=== PATIENT | female | born 1970 | race Caucasian/White ===

== ENCOUNTER 2016-05-11 10:37 | Inpatient (IN) | payer MEDICAID ==
[~2016-05-11] VITALS: Ht 157.5 cm; Wt 104.3 kg
[2016-05-11] MEDS ORDERED: METF10002 PO (10:56)
[2016-05-11] MEDS ORDERED: BENA20TA3 PO (10:56)
[2016-05-11] MEDS ORDERED: GLIP5TAB12 PO (10:56)
[2016-05-11] MEDS ORDERED: ATOR10TA69 PO (10:56)
[2016-05-11] MEDS ORDERED: HYDR-3280 PO (10:56)
[2016-05-11] MEDS ORDERED: GABA-533 PO (10:56)
[2016-05-11] MEDS ORDERED: LANS30CA55 PO (10:56)
[2016-05-11] MEDS ORDERED: TRAZ-132 PO (10:56)
[2016-05-11] MEDS ORDERED: ASPI-1035 PO (10:56)
[2016-05-11] MEDS ORDERED: METOCLOPRAM (10:56)
[2016-05-11] MEDS ORDERED: SUCR1ORA PO (10:56)
[2016-05-11] MEDS ORDERED: TOPI-35 PO (10:56)
[2016-05-11] MEDS ORDERED: DULO60CA44 PO (10:56)
[2016-05-11] MEDS ORDERED: STOOL SOFTENER (10:56)
[2016-05-11 12:01] LABS: BASOPHILS % 0.9 % (0.0-2.0); HEMATOCRIT. 33.2 % (36.0-48.0); HEMOGLOBIN. 11.1 g/dL (12.0-16.0); LYMPHOCYTES % 35.1 % (20.0-50.0); MEAN CORPUSCULAR HGB CONC 33.6 g/dL (31.0-37.0); MEAN CORPUSCULAR VOLUME 98.3 fL (81.0-99.0); MEAN PLATELET VOLUME 7.3 fl (7.4-10.4); MONOCYTES % 5.3 % (2.0-8.0); NEUTROPHILS % 53.7 % (40.0-76.0); PLATELET 435 x1000/uL (130-400); RED BLOOD CELL COUNT 3.37 mill/uL (4.2-5.4); RED CELL DISTRIBUTION WIDTH 12.7 % (11.6-14.6); WHITE BLOOD COUNT 6.7 x1000/uL (4.5-11.0)
[2016-05-11 12:07] LABS: PROTHROMBIN TIME 10.8 sec
[2016-05-11 12:13] LABS: ANION GAP 14; CARBON DIOXIDE 26 mEq/L (21-32); CHLORIDE 105 mEq/L (98-107); UREA NITROGEN BLOOD 21 mg/dL (7-21)
[2016-05-11 12:14] LABS: ALANINE AMINOTRANSFERASE 29 IU/L (13-61); ALBUMIN 2.9 g/dL (3.4-5.0); CALCIUM 8.6 mg/dL (8.5-10.1); INDEX HEMOLYSI 1 (1-3); INDEX ICTERIC 1 (1-4); INDEX LIPEMIC 2 (1-3); eGFR > 60 mL/min (>60)
[2016-05-11 12:14] LABS: CLARITY URINE HAZY (CLEAR); COLOR URINE YELLOW (YELLOW); GLUCOSE URINE TRACE (NEGATIVE); KETONES URINE NEGATIVE (NEGATIVE); LEUKOCYTE ESTERASE URINE TRACE (NEGATIVE); NITRITE URINE NEGATIVE (NEGATIVE); OCCULT BLOOD URINE 1+ (NEGATIVE); PROTEIN URINE 3+ (NEGATIVE); SPECIFIC GRAVITY URINE 1.025 (1.005-1.030); UROBILINOGEN URINE 0.2 E.U./dL (0.2-1.0)
[2016-05-11] MEDS ORDERED: HYDROCODONE/ACETAMINOPHEN 10/325MG TABLET PO PRN (12:30)
[2016-05-11 12:36] LABS: BACTERIA URINE TRACE; SQUAMOUS EPITHELIAL CELL URINE 2+ /lpf (RARE/1+); WBC URINE 0-2 /hpf (0-2)
[2016-05-11 12:37] LABS: YEAST URINE FEW
[2016-05-11 12:38] LABS: RBC URINE NONE SEEN /hpf (0-2)
[2016-05-11] MEDS ORDERED: VANCOMYCIN 1 G PREMIX 200 ML IV SCH (13:15)
[2016-05-11] MEDS ORDERED: ACETAMINOPHEN 325MG TABLET PO PRN (13:15)
[2016-05-11] MEDS ORDERED: IPRATROPIUM/ALBUTEROL 0.5-3(2.5)MG/3ML NEB INH PRN (13:15)
[2016-05-11] MEDS ORDERED: DEXTROSE 50% WATER 50ML SYRINGE IV PRN (13:15)
[2016-05-11] MEDS ORDERED: ONDANSETRON HCL 4MG/2ML VIAL IV PRN (13:15)
[2016-05-11] MEDS ORDERED: TETANUS, DIPHTHERIA, PERTUSSIS VAC/PF 0.5ML (>7YR OLD) IM ONE (13:15)
[2016-05-11] MEDS ORDERED: DIPHENHYDRAMINE 50MG/ML VIAL IV PRN (13:15)
[2016-05-11] MEDS ORDERED: CLONIDINE 0.1MG TABLET PO PRN (13:15)
[2016-05-11] MEDS ORDERED: PIPERACILLIN/TAZ 3.375G PREMIX 50 ML IV SCH (14:30)
[2016-05-11 16:00] VITALS: BP 97/67
[2016-05-11 16:34] VITALS: BP 97/67
[2016-05-11] MEDS ORDERED: GLIPIZIDE 5MG TABLET PO SCH (17:00)
[2016-05-11] MEDS ORDERED: SUCRALFATE 1 G/10 ML UDC PO SCH (17:00)
[2016-05-11] MEDS ORDERED: GABAPENTIN 400MG CAPSULE PO SCH (17:00)
[2016-05-11] MEDS ORDERED: METOCLOPRAMIDE HCL 10MG TABLET PO ONE (17:00)
[2016-05-11] MEDS: BLOOD SUGAR DIAGNOSTIC STRIP TEST SCH ×2 (17:46→20:32)
[2016-05-11] MEDS: INSULIN LISPRO 100 UNITS/ML SUBCUT SCH ×2 (17:50→22:35)
[2016-05-11] MEDS ORDERED: VANCOMYCIN 2,000 MG in DEXT 5% WATER 500 ML IV NR (18:00)
[2016-05-11] MEDS: GABAPENTIN 400MG CAPSULE PO SCH (18:33)
[2016-05-11] MEDS: HYDROCODONE/ACETAMINOPHEN 5/325MG TABLET PO PRN (18:35)
[2016-05-11] MEDS: METFORMIN HCL 500MG TABLET PO SCH (18:35)
[2016-05-11] MEDS: GLIPIZIDE 5MG TABLET PO SCH (18:35)
[2016-05-11] MEDS: PIPERACILLIN/TAZ 3.375G PREMIX 50 ML IV SCH (18:44)
[2016-05-11 20:11] VITALS: BP 96/63
[2016-05-11] MEDS: ATORVASTATIN CALCIUM 10MG TABLET PO SCH (22:29)
[2016-05-11] MEDS: TRAZODONE HCL 100MG TABLET PO SCH (22:30)
[2016-05-11] MEDS: SUCRALFATE 1 G/10 ML UDC PO SCH (22:30)
[2016-05-12] VITALS: BP 97/66
[2016-05-12] MEDS: PIPERACILLIN/TAZ 3.375G PREMIX 50 ML IV SCH ×4 (01:21→17:31)
[2016-05-12] MEDS: HYDROCODONE/ACETAMINOPHEN 5/325MG TABLET PO PRN ×5 (03:48→21:35)
[2016-05-12] MEDS ORDERED: VANCOMYCIN 1 G PREMIX 200 ML IV SCH (06:00)
[2016-05-12 06:32] LABS: BASOPHILS % 0.6 % (0.0-2.0); EOSINOPHILS % 4.7 % (0.0-5.0); HEMATOCRIT. 31.4 % (36.0-48.0); HEMOGLOBIN. 10.5 g/dL (12.0-16.0); LYMPHOCYTES % 30.4 % (20.0-50.0); MEAN CORPUSCULAR HEMOGLOBIN 32.5 pg (28.0-32.0); MEAN CORPUSCULAR HGB CONC 33.4 g/dL (31.0-37.0); MEAN CORPUSCULAR VOLUME 97.2 fL (81.0-99.0); MEAN PLATELET VOLUME 7.3 fl (7.4-10.4); MONOCYTES % 7.9 % (2.0-8.0); NEUTROPHILS % 56.4 % (40.0-76.0); PLATELET 369 x1000/uL (130-400); RED BLOOD CELL COUNT 3.23 mill/uL (4.2-5.4); RED CELL DISTRIBUTION WIDTH 12.9 % (11.6-14.6); WHITE BLOOD COUNT 5.8 x1000/uL (4.5-11.0)
[2016-05-12] MEDS: BLOOD SUGAR DIAGNOSTIC STRIP TEST SCH ×4 (06:45→21:00)
[2016-05-12] MEDS: PANTOPRAZOLE 40MG DR TABLET PO SCH (06:55)
[2016-05-12 07:09] LABS: ALANINE AMINOTRANSFERASE 26 IU/L (13-61); ALBUMIN 2.5 g/dL (3.4-5.0); ANION GAP 12; CALCIUM 8.5 mg/dL (8.5-10.1); CARBON DIOXIDE 25 mEq/L (21-32); CHLORIDE 107 mEq/L (98-107); HDL CHOLESTEROL 38 mg/dL (40-59); INDEX HEMOLYSI 1 (1-3); INDEX ICTERIC 1 (1-4); INDEX LIPEMIC 1 (1-3); LDL CHOLESTEROL 57 mg/dL (5-100); TRIGLYCERIDE 242 mg/dL (0-150); UREA NITROGEN BLOOD 21 mg/dL (7-21); eGFR > 60 mL/min (>60)
[2016-05-12] MEDS ORDERED: DOCU-138 PO ×2 (07:36→08:22)
[2016-05-12 08:00] VITALS: BP 128/80
[2016-05-12] MEDS: BENAZEPRIL 20MG TABLET PO SCH (09:00)
[2016-05-12] MEDS ORDERED: LANSOPRAZOLE 30MG DR CAPSULE PO SCH (09:00)
[2016-05-12] MEDS: GABAPENTIN 400MG CAPSULE PO SCH ×3 (09:06→17:03)
[2016-05-12] MEDS: TOPIRAMATE 100MG TABLET PO SCH (09:07)
[2016-05-12] MEDS: GLIPIZIDE 5MG TABLET PO SCH ×2 (09:08→17:04)
[2016-05-12] MEDS: METFORMIN HCL 500MG TABLET PO SCH ×2 (09:09→17:02)
[2016-05-12] MEDS: SUCRALFATE 1 G/10 ML UDC PO SCH ×4 (09:11→21:27)
[2016-05-12] MEDS: ASPIRIN 81MG EC TABLET PO SCH (09:11)
[2016-05-12] MEDS: DULOXETINE HCL 60MG DR CAPSULE PO SCH (09:13)
[2016-05-12] MEDS: INSULIN LISPRO 100 UNITS/ML SUBCUT SCH ×4 (09:21→21:00)
[2016-05-12] MEDS: DOCUSATE SODIUM 100MG CAPSULE PO SCH ×2 (10:06→17:03)
[2016-05-12 12:00] VITALS: BP 128/87
[2016-05-12] MEDS: INSULIN DETEMIR UD 100 UNITS/ML SYR SUBCUT SCH (12:04)
[2016-05-12 16:00] VITALS: BP 115/74
[2016-05-12] MEDS: METOCLOPRAMIDE HCL 10MG TABLET PO SCH (17:04)
[2016-05-12 20:00] VITALS: BP 118/83
[2016-05-12] MEDS: TRAZODONE HCL 100MG TABLET PO SCH (21:28)
[2016-05-12] MEDS: ATORVASTATIN CALCIUM 10MG TABLET PO SCH (21:28)
[2016-05-12] MEDS: VANCOMYCIN 750 MG PREMIX 150 ML IV SCH (21:28)
[2016-05-12] MEDS: HYDROCODONE/ACETAMINOPHEN 10/325MG TABLET PO PRN (21:35)
[2016-05-13] VITALS: BP 128/79
[2016-05-13] MEDS: METOCLOPRAMIDE HCL 10MG TABLET PO SCH ×4 (01:08→18:15)
[2016-05-13] MEDS: PIPERACILLIN/TAZ 3.375G PREMIX 50 ML IV SCH ×4 (02:17→20:54)
[2016-05-13] MEDS: HYDROCODONE/ACETAMINOPHEN 10/325MG TABLET PO PRN ×4 (03:44→21:08)
[2016-05-13 04:00] VITALS: BP 137/72
[2016-05-13] MEDS: PANTOPRAZOLE 40MG DR TABLET PO SCH (06:46)
[2016-05-13] MEDS: BLOOD SUGAR DIAGNOSTIC STRIP TEST SCH ×4 (07:20→21:00)
[2016-05-13 08:00] VITALS: BP 107/74
[2016-05-13] MEDS: SUCRALFATE 1 G/10 ML UDC PO SCH ×4 (08:28→20:54)
[2016-05-13] MEDS: TOPIRAMATE 100MG TABLET PO SCH (08:30)
[2016-05-13] MEDS: DOCUSATE SODIUM 100MG CAPSULE PO SCH ×2 (08:30→18:16)
[2016-05-13] MEDS: ASPIRIN 81MG EC TABLET PO SCH (08:30)
[2016-05-13] MEDS: DULOXETINE HCL 60MG DR CAPSULE PO SCH (08:31)
[2016-05-13] MEDS: METFORMIN HCL 500MG TABLET PO SCH ×2 (08:31→18:14)
[2016-05-13] MEDS: GLIPIZIDE 5MG TABLET PO SCH ×2 (08:32→18:15)
[2016-05-13] MEDS: BENAZEPRIL 20MG TABLET PO SCH (08:32)
[2016-05-13] MEDS: GABAPENTIN 400MG CAPSULE PO SCH ×3 (08:33→18:14)
[2016-05-13] MEDS: INSULIN LISPRO 100 UNITS/ML SUBCUT SCH ×4 (08:35→21:00)
[2016-05-13] MEDS: SUMATRIPTAN SUCCINATE 25MG TABLET PO PRN (08:59)
[2016-05-13] MEDS: VANCOMYCIN 750 MG PREMIX 150 ML IV SCH ×2 (09:01→20:49)
[2016-05-13] MEDS: INSULIN DETEMIR UD 100 UNITS/ML SYR SUBCUT SCH (10:35)
[2016-05-13 12:00] VITALS: BP 136/78
[2016-05-13 16:00] VITALS: BP 117/80
[2016-05-13 20:00] VITALS: BP 108/68
[2016-05-13] MEDS: ATORVASTATIN CALCIUM 10MG TABLET PO SCH (21:08)
[2016-05-13] MEDS: TRAZODONE HCL 100MG TABLET PO SCH (21:08)
[2016-05-14] VITALS: BP 104/64
[2016-05-14] MEDS: METOCLOPRAMIDE HCL 10MG TABLET PO SCH ×4 (00:56→17:32)
[2016-05-14] MEDS: PIPERACILLIN/TAZ 3.375G PREMIX 50 ML IV SCH ×4 (02:22→20:35)
[2016-05-14 04:00] VITALS: BP 93/52
[2016-05-14] MEDS: BLOOD SUGAR DIAGNOSTIC STRIP TEST SCH ×4 (06:21→20:41)
[2016-05-14 07:46] LABS: CALCIUM 8.2 mg/dL (8.5-10.1)
[2016-05-14] MEDS: METFORMIN HCL 500MG TABLET PO SCH ×2 (07:47→09:56)
[2016-05-14] MEDS: INSULIN LISPRO 100 UNITS/ML SUBCUT SCH ×4 (07:47→20:41)
[2016-05-14] MEDS ORDERED: FENTANYL CITRATE/PF 50MCG/ML 2ML VIAL ONE (07:51)
[2016-05-14] MEDS ORDERED: IODIXANOL 320MG/ML 100 ML BOTTLE IV ONE (07:51)
[2016-05-14] MEDS ORDERED: MIDAZOLAM HCL 2 MG/2 ML VIAL ONE (07:51)
[2016-05-14] MEDS ORDERED: LIDOCAINE HCL 1% 20ML VIAL (Pyxis) INJ ONE (07:52)
[2016-05-14 08:00] VITALS: BP 135/90
[2016-05-14] MEDS ORDERED: HYDROMORPHONE HCL/PF 2MG/ML (OR) ONE (08:20)
[2016-05-14 09:54] LABS: BASOPHILS % 0.5 % (0.0-2.0); EOSINOPHILS % 4.1 % (0.0-5.0); HEMATOCRIT. 32.7 % (36.0-48.0); HEMOGLOBIN. 10.8 g/dL (12.0-16.0); LYMPHOCYTES % 33.6 % (20.0-50.0); MEAN CORPUSCULAR HEMOGLOBIN 32.9 pg (28.0-32.0); MEAN CORPUSCULAR HGB CONC 33.1 g/dL (31.0-37.0); MEAN CORPUSCULAR VOLUME 99.2 fL (81.0-99.0); MEAN PLATELET VOLUME 7.3 fl (7.4-10.4); MONOCYTES % 5.4 % (2.0-8.0); NEUTROPHILS % 56.4 % (40.0-76.0); PLATELET 394 x1000/uL (130-400); RED BLOOD CELL COUNT 3.29 mill/uL (4.2-5.4); RED CELL DISTRIBUTION WIDTH 12.8 % (11.6-14.6); WHITE BLOOD COUNT 8.2 x1000/uL (4.5-11.0)
[2016-05-14] MEDS: GABAPENTIN 400MG CAPSULE PO SCH ×3 (09:55→17:32)
[2016-05-14] MEDS: DOCUSATE SODIUM 100MG CAPSULE PO SCH ×2 (09:56→17:32)
[2016-05-14] MEDS: FAMOTIDINE 20MG TABLET PO SCH ×2 (09:56→17:32)
[2016-05-14] MEDS: ASPIRIN 81MG EC TABLET PO SCH (09:56)
[2016-05-14] MEDS: SUCRALFATE 1 G/10 ML UDC PO SCH ×4 (09:57→20:41)
[2016-05-14] MEDS: BENAZEPRIL 20MG TABLET PO SCH (09:57)
[2016-05-14] MEDS: TOPIRAMATE 100MG TABLET PO SCH (09:57)
[2016-05-14] MEDS: DULOXETINE HCL 60MG DR CAPSULE PO SCH (09:58)
[2016-05-14] MEDS: GLIPIZIDE 5MG TABLET PO SCH ×2 (09:58→17:32)
[2016-05-14] MEDS: INSULIN DETEMIR UD 100 UNITS/ML SYR SUBCUT SCH (10:11)
[2016-05-14] MEDS: HYDROCODONE/ACETAMINOPHEN 10/325MG TABLET PO PRN ×2 (10:16→17:47)
[2016-05-14] MEDS: VANCOMYCIN 750 MG PREMIX 150 ML IV SCH ×2 (10:50→21:59)
[2016-05-14 12:00] VITALS: BP 160/91
[2016-05-14] MEDS: SUMATRIPTAN SUCCINATE 25MG TABLET PO PRN (13:13)
[2016-05-14 16:00] VITALS: BP 128/69
[2016-05-14 20:00] VITALS: BP 109/74
[2016-05-14] MEDS: ATORVASTATIN CALCIUM 10MG TABLET PO SCH (20:35)
[2016-05-14] MEDS: TRAZODONE HCL 100MG TABLET PO SCH (20:35)
[2016-05-15] VITALS: BP 118/70
[2016-05-15] MEDS: METOCLOPRAMIDE HCL 10MG TABLET PO SCH ×5 (00:04→23:29)
[2016-05-15] MEDS: HYDROCODONE/ACETAMINOPHEN 10/325MG TABLET PO PRN ×3 (00:04→21:41)
[2016-05-15] MEDS: PIPERACILLIN/TAZ 3.375G PREMIX 50 ML IV SCH ×4 (02:24→20:55)
[2016-05-15 04:00] VITALS: BP 105/56
[2016-05-15 06:58] LABS: BASOPHILS % 0.6 % (0.0-2.0); EOSINOPHILS % 2.5 % (0.0-5.0); HEMATOCRIT. 29.8 % (36.0-48.0); HEMOGLOBIN. 10.2 g/dL (12.0-16.0); LYMPHOCYTES % 41.7 % (20.0-50.0); MEAN CORPUSCULAR HEMOGLOBIN 33.1 pg (28.0-32.0); MEAN CORPUSCULAR HGB CONC 34.2 g/dL (31.0-37.0); MEAN CORPUSCULAR VOLUME 96.7 fL (81.0-99.0); MEAN PLATELET VOLUME 7.2 fl (7.4-10.4); MONOCYTES % 7.2 % (2.0-8.0); PLATELET 389 x1000/uL (130-400); RED BLOOD CELL COUNT 3.09 mill/uL (4.2-5.4); RED CELL DISTRIBUTION WIDTH 12.7 % (11.6-14.6); WHITE BLOOD COUNT 8.3 x1000/uL (4.5-11.0)
[2016-05-15] MEDS: BLOOD SUGAR DIAGNOSTIC STRIP TEST SCH ×4 (07:06→21:02)
[2016-05-15 07:11] LABS: CALCIUM 8.4 mg/dL (8.5-10.1)
[2016-05-15 07:41] VITALS: BP 105/61
[2016-05-15] MEDS: INSULIN LISPRO 100 UNITS/ML SUBCUT SCH ×4 (07:50→21:00)
[2016-05-15] MEDS: BENAZEPRIL 20MG TABLET PO SCH (09:00)
[2016-05-15] MEDS: SUCRALFATE 1 G/10 ML UDC PO SCH ×4 (09:00→20:56)
[2016-05-15] MEDS: METFORMIN HCL 500MG TABLET PO SCH ×2 (09:44→18:07)
[2016-05-15] MEDS: DULOXETINE HCL 60MG DR CAPSULE PO SCH (09:45)
[2016-05-15] MEDS: DOCUSATE SODIUM 100MG CAPSULE PO SCH ×2 (09:45→18:06)
[2016-05-15] MEDS: ASPIRIN 81MG EC TABLET PO SCH (09:46)
[2016-05-15] MEDS: GLIPIZIDE 5MG TABLET PO SCH ×2 (09:46→18:06)
[2016-05-15] MEDS: FAMOTIDINE 20MG TABLET PO SCH ×2 (09:47→18:07)
[2016-05-15] MEDS: GABAPENTIN 400MG CAPSULE PO SCH ×3 (09:47→18:06)
[2016-05-15] MEDS: TOPIRAMATE 100MG TABLET PO SCH (09:48)
[2016-05-15 11:49] VITALS: BP 115/62
[2016-05-15] MEDS: INSULIN DETEMIR UD 100 UNITS/ML SYR SUBCUT SCH (12:59)
[2016-05-15] MEDS: VANCOMYCIN 750 MG PREMIX 150 ML IV SCH (15:40)
[2016-05-15] MEDS: SUMATRIPTAN SUCCINATE 25MG TABLET PO PRN (15:41)
[2016-05-15 15:50] VITALS: BP 110/66
[2016-05-15 20:00] VITALS: BP 113/65
[2016-05-15] MEDS: ATORVASTATIN CALCIUM 10MG TABLET PO SCH (20:55)
[2016-05-15] MEDS: TRAZODONE HCL 100MG TABLET PO SCH (20:55)
[2016-05-15] MEDS ORDERED: LOPERAMIDE HCL 2MG CAPSULE PO PRN (22:38)
[2016-05-16] VITALS: BP 147/79
[2016-05-16] MEDS: PIPERACILLIN/TAZ 3.375G PREMIX 50 ML IV SCH ×3 (02:12→13:53)
[2016-05-16] MEDS: VANCOMYCIN 750 MG PREMIX 150 ML IV SCH (04:20)
[2016-05-16] MEDS: HYDROCODONE/ACETAMINOPHEN 10/325MG TABLET PO PRN ×2 (05:04→13:54)
[2016-05-16] MEDS: METOCLOPRAMIDE HCL 10MG TABLET PO SCH ×3 (06:36→17:42)
[2016-05-16] MEDS: BLOOD SUGAR DIAGNOSTIC STRIP TEST SCH ×3 (06:40→16:59)
[2016-05-16 07:50] LABS: CALCIUM 8.4 mg/dL (8.5-10.1)
[2016-05-16] MEDS: INSULIN LISPRO 100 UNITS/ML SUBCUT SCH ×3 (07:50→17:01)
[2016-05-16 08:00] VITALS: BP 117/70
[2016-05-16] MEDS: DOCUSATE SODIUM 100MG CAPSULE PO SCH ×2 (08:18→16:48)
[2016-05-16] MEDS: SUCRALFATE 1 G/10 ML UDC PO SCH ×4 (09:00→16:48)
[2016-05-16] MEDS: METFORMIN HCL 500MG TABLET PO SCH ×2 (09:24→17:00)
[2016-05-16] MEDS: DULOXETINE HCL 60MG DR CAPSULE PO SCH (09:29)
[2016-05-16] MEDS: GLIPIZIDE 5MG TABLET PO SCH ×2 (09:30→16:59)
[2016-05-16] MEDS: ASPIRIN 81MG EC TABLET PO SCH (09:30)
[2016-05-16] MEDS: GABAPENTIN 400MG CAPSULE PO SCH ×3 (09:31→17:00)
[2016-05-16] MEDS: BENAZEPRIL 20MG TABLET PO SCH (09:31)
[2016-05-16] MEDS: FAMOTIDINE 20MG TABLET PO SCH ×2 (09:32→17:00)
[2016-05-16] MEDS: TOPIRAMATE 100MG TABLET PO SCH (09:47)
[2016-05-16] MEDS: INSULIN DETEMIR UD 100 UNITS/ML SYR SUBCUT SCH (11:10)
[2016-05-16 12:00] VITALS: BP 113/63
[2016-05-16] MEDS: VANCOMYCIN HCL 1000 MG/20 ML ORAL PO SCH ×2 (12:54→17:44)
[2016-05-16 16:00] VITALS: BP 105/66
[2016-05-16] MEDS: SUMATRIPTAN SUCCINATE 25MG TABLET PO PRN (17:43)
[2016-05-16] MEDS ORDERED: VANCOMYCIN 750 MG PREMIX 150 ML IV SCH (18:00)
[2016-05-16 18:38] VITALS: BP 105/66
== END 2016-05-16 19:55 | disposition home or self-care (01) | DRG 48 ==
LOC: ER 11:21 → 6EST 12:45
PROVIDERS: ADMIT Internal Medicine; ATTEND Internal Medicine
PROC: B41F1ZZ Fluoroscopy of Right Lower Extremity Arteries using Low Osmolar Contrast (ICD-10-PCS; principal; 2016-05-14)
DX: E11.610 Type 2 diabetes mellitus with diabetic neuropathic arthropathy (principal); E11.51 Type 2 diabetes mellitus with diabetic peripheral angiopathy without gangrene; L03.115 Cellulitis of right lower limb; Z68.41 Body mass index [BMI] 40.0-44.9, adult; E11.65 Type 2 diabetes mellitus with hyperglycemia; E11.42 Type 2 diabetes mellitus with diabetic polyneuropathy; E66.01 Morbid (severe) obesity due to excess calories; I10 Essential (primary) hypertension; D64.9 Anemia, unspecified; M54.16 Radiculopathy, lumbar region; E78.5 Hyperlipidemia, unspecified; M06.9 Rheumatoid arthritis, unspecified; G89.29 Other chronic pain; G43.909 Migraine, unspecified, not intractable, without status migrainosus; N39.0 Urinary tract infection, site not specified; Z79.899 Other long term (current) drug therapy; Z71.3 Dietary counseling and surveillance; Z85.41 Personal history of malignant neoplasm of cervix uteri
CPT/HCPCS: 36415; 73630; 73721; 75710; 80048; 80053; 80061; 80202; 81001; 81025; 82962; 83036; 85025; 85610; 85651; 86140; 87040; 87493; 93923; 97110; 97116; 97162; 97164; 99285; C1760; C1769; C1893; J1170; J1200; J1644; J1815; J2250; J2405; J2543; J3010; J3370; J3490; J7040; J7060; J8597; Q9967